=== PATIENT | female | born 1990 | race Caucasian/White ===

== ENCOUNTER 2020-01-28 12:09 | Inpatient (IN) ==
[2020-01-28] MEDS ORDERED: ONDANSETRON 4 MG TAB.RAPDIS PO PRN (12:13)
[2020-01-28] MEDS ORDERED: DEXTROSE 5%-LACTATED RINGERS 1,000 ML IV PRN (12:13)
[2020-01-28] MEDS ORDERED: MISOPROSTOL 100 MCG TABLET VG PRN (12:13)
[2020-01-28] MEDS ORDERED: RINGER'S SOLUTION,LACTATED 1,000 ML IV ONE (12:13)
[2020-01-28] MEDS ORDERED: OXYTOCIN/DEXTROSE 5%-WATER 30 UNITS/500 ML BAG IV ONE (12:13)
[2020-01-28 12:57] LABS: Hematocrit 32.1 % (37.0-47.0); Hemoglobin 10.2 gm/dL (12.5-16.0); Mean Cell Volume 88.2 fl (78-100); Mean Corpuscular Hgb Conc 31.8 g/dl (32-36); Mean Platelet Volume 10.8 fl (8-12.5); Neutrophil # 5.4 K/mm3 (1.3-6.0); Neutrophil % 67.1 % (42-75.0); Platelet Count 257 K/mm3 (150-450); Red Blood Count 3.64 M/mm3 (4.2-5.4); Red Cell Distribution Width 13.2 % (11.5-14.0)
[2020-01-28 13:15] LABS: Albumin * 2.7 gm/dl (3.4-5.0); BUN/Creatinine Ratio 14.6 (9.0-21.6); Bilirubin, Total 0.3 mg/dL (0.0-1.1); Ca. Corrected For Albumin 9.7 mg/dL (8.4-10.2); Total Protein 6.8 gm/dL (6.2-8.2)
--- NOTE | 2020-01-28 14:07 | HP ---
Chief Complaint - Chief Complaint Date of Service: 01/28/20 Time of Service: 13:55 Chief Complaint: labor History of Present Illness: 29 yo at 38w4d admitted for induction of labor due to IHCP, however, was noted to be in early labor upon admission. This complicated by anemia, celiac disease, IHCP. and h/o PP depression Rh positive Rubella immune GBS negative Medical History (Last Reviewed 01/28/20 @ 13:58 by Kingston Berman DO) Umbilical hernia (Resolved) Onset Date: Unknown from Pectus excavatum (Chronic) Onset Date: ~1991 Celiac disease (Inactive) Onset Date: ~04/2016 [facility] - Anemia Onset Date: 04/14/17 with pregnancies Body piercing Onset Date: Unknown Wears glasses Onset Date: Unknown depression Onset Date: Unknown Onset Date: Unknown Spontaneous Onset Date: ~2016 Surgical History: Surgical History (Last Reviewed 01/28/20 @ 13:58 by Kingston Berman DO) History of umbilical hernia repair Onset Date: 10/20/18 [facility] S/P tonsillectomy and adenoidectomy Onset Date: ~1994 Family History: Family History (Last Reviewed 01/28/20 @ 13:58 by Kingston Berman DO) Mother Alive and well Father Hypertension Brother Kidney disease born with 1 kidney Grandfather No problems noted. 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, ore miner current occupational exposures/hazards: No Highest education level completed: Bachelor's degree Sexually Active: Yes Service: No Tobacco: Smoking Status: Never smoker Alcohol: alcohol intake: current alcohol intake frequency: holiday/special occasion details: none with Substance Use: substance use type: does not use Dietary Habits: caffeine: Yes caffeine comment: 2/week Type: carbonated beverages Exercise: Physical activity type: walking frequency: other Moderate/strenuous exercise - min/day: active but no formal exercise Fifi/[employer]: agree to transfusion: Yes Personal Safety: victim of physical abuse: No victim of emotional abuse: No victim of sexual abuse: No Review Of Systems (GEN) - Review of Systems Generalized/Overall Review: Present: No Symptoms Reported EENTM: Present: No Symptoms Reported Respiratory: Present: No Symptoms Reported Cardiac: Present: No Symptoms Reported Abdominal: Present: Abdominal Pain - contractions Genitourinary: Present: No Symptoms Reported Musculoskeletal: Present: No Symptoms Reported Neurological: Present: No Symptoms Reported Skin: Present: Other - Increasing pruritis on palms of hands and soles of feet for past 3 days, worse at night Endocrine: Present: No Symptoms Reported Immunizations: IMMUNIZATION HX Immunizations Up to Date Yes History of Influenza Vaccine Yes Hx Pneumococcal Vaccination No Allergies/Adverse Reactions: Allergies Allergy/AdvReac Type Severity Reaction Status Date / Time No Known Allergies Allergy Verified 01/28/20 11:06 Home Medications: HOME MEDICATIONS docusate sodium 100 mg capsule 100 mg PO DAILY PRN 02/24/18 [Last Taken Unknown] acetaminophen 500 mg tablet 500 mg PO Q6H PRN 03/25/19 [Last Taken 01/27/20 09:00] cetirizine 10 mg capsule 10 mg PO DAILY 07/08/19 [Last Taken Unknown] prenat.vits,osman,zcs-lfzq-gqgnu 1 tab PO DAILY 07/08/19 [Last Taken 01/28/20] calcium carbonate 300 mg (750 mg) chewable tablet 300 mg PO QID PRN 08/26/19 [Last Taken Unknown] breast pump See Rx Instructions .ROUTE .MEDSUPPLY #1 ea 10/13/19 [Last Taken Unknown] Exam - Exam Vital Signs: Vital Signs - Last Taken Temp 37.1 C 01/28/20 13:20 Pulse 95 01/28/20 13:20 Resp 16 01/28/20 13:20 BP 109/63 01/28/20 13:20 Pulse Ox 98 01/28/20 13:20 Constitutional: Present: Alert, Oriented x3, Cooperative, No distress ENT Exam: Present: hearing grossly normal Neck: Present: non-tender Breasts: Present: Exam deferred Respiratory: Present: lungs clear, no respiratory distress Cardiovascular/Chest: Present: regular rate, rhythm, no edema Abdomen: Present: soft, nontender, no rebound tenderness, no hepatospenomegaly, other - Gravid /Rectal: Present: Other - 1/50/-3 Extremity: Present: no pedal edema, no calf tenderness Skin Exam: Present: normal color, warm/dry, no cyanosis Lymphatic: Present: no adenopathy Neurologic: Present: alert, normal mood/affect, oriented x 3 Appearance: Present: appropriate appearance, appropriate insight Eye contact: Present: cooperative, good eye contact Thoughts: Present: normal thought pattern Diagnostic Studies: Abnormal Lab Results 01/28/20 01/28/20 Range/Units 12:50 12:50 RBC 3.64 L (4.2-5.4) M/mm3 Hgb 10.2 L (12.5-16.0) gm/dL Hct 32.1 L (37.0-47.0) % MCHC 31.8 L (32-36) g/dl Immature Gran % (Auto) 0.60 H (0.001-0.429) % Immature Gran # (Auto) 0.05 H (0.000-0.0310) K/mm3 Carbon Dioxide 21.0 L (24-32.6) mmol/L Anion Gap 15.0 H (6.8-13.8) mmol/L Est GFR (Non-Af Amer) 165 H D (60-130) mL/min ALT 17 L (19-67) U/L Alkaline Phosphatase 206 H (50-170) U/L Albumin 2.7 L (3.4-5.0) gm/dl Laboratory Results WBC 8.0 K/mm3 (4.0-10.5) 01/28/20 12:50 RBC 3.64 M/mm3 (4.2-5.4) L 01/28/20 12:50 Hgb 10.2 gm/dL (12.5-16.0) L 01/28/20 12:50 Hct 32.1 % (37.0-47.0) L 01/28/20 12:50 MCV 88.2 fl (78-100) 01/28/20 12:50 MCH 28.0 pg (27-31) 01/28/20 12:50 MCHC 31.8 g/dl (32-36) L 01/28/20 12:50 RDW 13.2 % (11.5-14.0) 01/28/20 12:50 Plt Count 257 K/mm3 (150-450) 01/28/20 12:50 MPV 10.8 fl (8-12.5) 01/28/20 12:50 Immature Gran % (Auto) 0.60 % (0.001-0.429) H 01/28/20 12:50 Immature Gran # (Auto) 0.05 K/mm3 (0.000-0.0310) H 01/28/20 12:50 Neutrophils % 67.1 % (42-75.0) 01/28/20 12:50 Lymphocytes % 24.2 % (20-51) 01/28/20 12:50 Monocytes % 7.3 % (0.0-9) 01/28/20 12:50 Eosinophils % 0.6 % (0.0-3.0) 01/28/20 12:50 Basophils % 0.2 % (0.0-1.0) 01/28/20 12:50 Nucleated RBC % 0.0 k/mm3 (0-1) 01/28/20 12:50 Neutrophils # 5.4 K/mm3 (1.3-6.0) 01/28/20 12:50 Lymphocytes # 1.94 k/mm3 (1.5-3.5) 01/28/20 12:50 Monocytes # 0.6 k/mm3 (0.0-1.0) 01/28/20 12:50 Eosinophils # 0.1 k/mm3 (0.0-0.7) 01/28/20 12:50 Absolute Basophils 0.0 k/mm3 (0.0-0.1) 01/28/20 12:50 Sodium 136 mmol/L (132-142) 01/28/20 12:50 Plasma Sodium 136 mmol/L (130-142) 01/28/20 12:50 Potassium 4.0 mmol/L (3.4-4.6) 01/28/20 12:50 Chloride 104 mmol/L (97-106) 01/28/20 12:50 Carbon Dioxide 21.0 mmol/L (24-32.6) L 01/28/20 12:50 Anion Gap 15.0 mmol/L (6.8-13.8) H 01/28/20 12:50 BUN 7 mg/dL (3-23) 01/28/20 12:50 Creatinine 0.48 mg/dL (0.4-1.4) 01/28/20 12:50 Est GFR (Non-Af Amer) 165 mL/min (60-130) H D 01/28/20 12:50 BUN/Creatinine Ratio 14.6 (9.0-21.6) 01/28/20 12:50 Random Glucose 72 mg/dL (70-110) 01/28/20 12:50 Calcium 9.0 mg/dL (7.9-10.9) 01/28/20 12:50 Calcium Adj for Albumin 9.7 mg/dL (8.4-10.2) 01/28/20 12:50 Total Bilirubin 0.3 mg/dL (0.0-1.1) 01/28/20 12:50 AST 17 U/L (0-48) 01/28/20 12:50 ALT 17 U/L (19-67) L 01/28/20 12:50 Alkaline Phosphatase 206 U/L (50-170) H 01/28/20 12:50 Total Protein 6.8 gm/dL (6.2-8.2) 01/28/20 12:50 Albumin 2.7 gm/dl (3.4-5.0) L 01/28/20 12:50 Assessment/Plan - Assessment/Plan (1) First stage of labor established Assessment: Admit for augmentation of labor due to IHCP. Epidural and pitocin PRN. Problem: Acute (2) Intrahepatic cholestasis of in third trimester Problem: Acute (3) Anemia Problem: Chronic Qualifiers: Anemia type: iron deficiency Iron deficiency anemia type: inadequate dietary iron intake Qualified Code(s): D50.8 - Other iron deficiency anemias (4) Celiac disease Problem: Inactive
[2020-01-28] MEDS ORDERED: BUPIVACAINE HCL/0.9 % NACL/PF 250 ML EP PRN (18:51)
[2020-01-28] MEDS ORDERED: NALOXONE HCL 1 MG/1 ML SYRG IV PRN (18:51)
[2020-01-28] MEDS ORDERED: ONDANSETRON HCL/PF 2 MG/ML VIAL IV PRN (18:51)
--- NOTE | 2020-01-28 18:59 | ANES ---
Anesthesia Pre Procedure Eval Vitals/Labs: Last Vital Signs Temp 37.1 C 01/28/20 13:20 Pulse 95 01/28/20 13:20 Resp 16 01/28/20 13:20 BP 109/63 01/28/20 13:20 Pulse Ox 98 01/28/20 13:20 HOME MEDICATIONS docusate sodium 100 mg capsule 100 mg PO DAILY PRN 02/24/18 [Last Taken Unknown] acetaminophen 500 mg tablet 500 mg PO Q6H PRN 03/25/19 [Last Taken 01/27/20 09:00] cetirizine 10 mg capsule 10 mg PO DAILY 07/08/19 [Last Taken Unknown] prenat.vits,osman,gum-avyu-ufotm 1 tab PO DAILY 07/08/19 [Last Taken 01/28/20] calcium carbonate 300 mg (750 mg) chewable tablet 300 mg PO QID PRN 08/26/19 [Last Taken Unknown] breast pump See Rx Instructions .ROUTE .MEDSUPPLY #1 ea 10/13/19 [Last Taken U nknown] Allergies/Adverse Reactions: Allergies Allergy/AdvReac Type Severity Reaction Status Date / Time No Known Allergies Allergy Verified 01/28/20 11:06 - Planned Procedure Planned Procedure: labor epidural Medication List Reviewed:: Yes Allergies Verified: Yes Medical History (Last Reviewed 01/28/20 @ 18:59 by Mike Mancini CRNA) Pectus excavatum (Chronic) Onset Date: ~1991 Celiac disease (Inactive) Onset Date: ~04/2016 [facility] - Anemia Onset Date: 04/14/17 with pregnancies Body piercing Onset Date: Unknown Wears glasses Onset Date: Unknown depression Onset Date: Unknown Onset Date: Unknown Spontaneous Onset Date: ~2016 Surgical History (Last Reviewed 01/28/20 @ 18:59 by Mike Mancini CRNA) History of umbilical hernia repair Onset Date: 10/20/18 [place] S/P tonsillectomy and adenoidectomy Onset Date: ~1994 Family History (Last Reviewed 01/28/20 @ 18:59 by Mike Mancini CRNA) Mother Alive and well Father Hypertension Brother Kidney disease born with 1 kidney Grandfather No problems noted. Family/Other Diabetes paternal great grandmother - Cardiovascular Tolerate Activity: Good - Anesthesia Assessment and Plan ASA Class: PS, II Anesthesia Type Plan: Epidural
[2020-01-28] MEDS ORDERED: BUPIVACAINE HCL/PF 30 ML VIAL EP SCH (19:00)
--- NOTE | 2020-01-28 19:19 | ANES ---
Anesthesia Procedure Note Procedure Note: ANESTHESIA PROCEDURE NOTE Date of Procedure: 01/28/2020 Time of procedure: 1854. Performed by: Mike Mancini CRNA Sandblaster Supervisor: None. Preprocedure diagnosis: Active labor. Post procedure diagnosis: Same. Procedure: Insertion of labor epidural. Indications: The patient is a 29-year-old female in active labor requesting labor epidural for pain management. Findings: See below. Details of the procedure: The patient was placed in a sitting position. DuraPrep as well as Betadine swabs X3 was applied to the patient's back. Patient was then draped in a sterile fashion. Lidocaine 1% was infiltrated to the skin and subcutaneous tissues at the level of the L3-4 interspace. The epidural space was identified using a 18-gauge Tuohy needle with [id number] technique. Epidural catheter was inserted to a depth of 9 centimeters at skin. Negative test dose was elicited using 3 mL of 1.5% preservative-free lidocaine plus epinephrine 1 200,000. The epidural catheter was then taped and secured in place. EBL: Minimal. Fluids: N/A. Specimen: N/A. Post procedure condition: The patient tolerated the procedure well. No complications were noted. Thank you for this consultation. Mike Mancini CRNA
--- NOTE | 2020-01-28 19:20 | ANES ---
Post Anesthesia Assessment - Vital Signs Vitals: Last Vital Signs Temp 37.1 C 01/28/20 13:20 Pulse 95 01/28/20 13:20 Resp 16 01/28/20 13:20 BP 109/63 01/28/20 13:20 Pulse Ox 98 01/28/20 13:20 Airway Patency: Normal - Mental Status Level Of Consciousness: Awake - Pain Level Pain Score: 0 - N/V Assessment Nausea/Vomiting Presence: None Dehydration:: No
--- NOTE | 2020-01-29 00:41 | PN ---
Progess Note - Interim Date: 01/29/20 Time: 00:39 Narrative: 01/29/20 00:39 Patient rating the contractions as moderate Vital signs stable. Pitocin at 8 mu/min. FHT: 120 baseline, reassuring contractions q 2-3 min Cervix: 2-3/60/-3 Impression: Intrauterine at 38 4/7 weeks induction of labor for IHCP Plan: We will try birthing ball and position changes to get head more applied to the cervix then AROM.
--- NOTE | 2020-01-29 02:41 | PN ---
Progess Note - Interim Date: 01/29/20 Time: 02:38 Narrative: 01/29/20 02:38 Patient desires epidural Vital signs stable. Pitocin at 9 mu/min. FHT: 120 baseline, reassuring contractions q 3-4 min Cervix: 4-5/60/-2, AROM-clear Impression: Intrauterine at 38-5/7 weeks induction of labor for IHCP Plan: Epidural and continue Pitocin to keep contractions q 2-3 minutes apart
--- NOTE | 2020-01-29 06:18 | OR ---
Operative Report - Dictated Report Narrative: Spontaneous vaginal delivery of vigorously crying viable male at 0600 on 01/29/2020 with Apgars 9 and 10, weighing 3140 g and ALEXIS position. Cord clamping delayed approximately 1 minute Placenta delivered complete, intact, with three vessel cord Estimated blood loss: 100 mL Anesthesia: Epidural Lacerations: None History for MU History for Definition: * The number of deliveries resulting in a live the patient experienced prior to current hospitalization * The previous delivery of live twins or any live multiple gestation is considered one live event. *If primagravida or nulliparous is documented select zero for the number of previous live births. Live Events: Live Events: 2
[2020-01-29] MEDS ORDERED: BENZOCAINE/MENTHOL 81 SPRAY CAN TP PRN (06:20)
[2020-01-29] MEDS ORDERED: SENNOSIDES 8.6 MG TABLET PO PRN (06:20)
[2020-01-29] MEDS ORDERED: OXYTOCIN/DEXTROSE 5%-WATER 30 UNITS/500 ML BAG IV ONE (06:20)
[2020-01-29] MEDS ORDERED: DOCUSATE SODIUM 100 MG CAPSULE PO PRN (06:20)
[2020-01-29] MEDS ORDERED: GLYCERIN/WITCH HAZEL LEAF 40 APPL BOX TP PRN (06:20)
[2020-01-29] MEDS ORDERED: HYDROCORTISONE 30 APPL TUBE TP PRN (06:20)
[2020-01-29] MEDS ORDERED: IBUPROFEN 800 MG TABLET PO PRN (06:20)
[2020-01-29] MEDS ORDERED: BISACODYL 10 MG SUPP.RECT RC PRN (06:20)
[2020-01-29] MEDS ORDERED: NON-FORMULARY 1 DOSE DOSE (Breast Pump 0 UNIT) TP SCH (06:30)
[2020-01-29] MEDS: PRENATAL VITS96/IRON FUM/FOLIC 1 TAB TABLET PO SCH (09:02)
[2020-01-29] MEDS: oxyCODONE HCL/ACETAMINOPHEN 1 TAB TABLET PO PRN ×4 (09:02→21:06)
[2020-01-29] MEDS: DOCUSATE SODIUM 100 MG CAPSULE PO SCH ×2 (09:02→21:03)
[2020-01-29] MEDS: LORATADINE 10 MG TABLET PO SCH (09:13)
[2020-01-29] MEDS ORDERED: RHO(D) IMMUNE GLOBULIN 1,500 UNIT SYRINGE IM ONE (12:45)
[2020-01-29] MEDS: IBUPROFEN 800 MG TABLET PO PRN ×2 (13:45→21:06)
[2020-01-30] MEDS: DOCUSATE SODIUM 100 MG CAPSULE PO SCH ×3 (07:49→20:03)
[2020-01-30] MEDS: PRENATAL VITS96/IRON FUM/FOLIC 1 TAB TABLET PO SCH ×2 (07:49→09:04)
[2020-01-30] MEDS: IBUPROFEN 800 MG TABLET PO PRN ×3 (07:50→21:04)
[2020-01-30] MEDS: oxyCODONE HCL/ACETAMINOPHEN 1 TAB TABLET PO PRN ×3 (07:50→21:04)
[2020-01-30] MEDS: LORATADINE 10 MG TABLET PO SCH (09:03)
--- NOTE | 2020-01-30 11:20 | PN ---
Subjective - Date and Time Seen Date: 01/30/20 Time: 11:20 Objective - Vitals Vitals: Last Vital Signs Temp 36.0 C 01/30/20 07:40 Pulse 71 01/30/20 07:40 Resp 18 01/30/20 07:40 BP 132/59 01/30/20 07:40 Pulse Ox 98 01/30/20 07:40 Patient denies complaints. Breast-feeding. Lochia wnl abdomen - soft, nontender Uterus -firm, at umbilicus - 1 no calf tenderness Impression: day #1 - s/p spontaneous vaginal delivery. Plan: Continue routine care Cauti Physician Documentation - Urinary Catheter Management Urethral (Sharp) Date of Insertion: 01/29/20 Time of Insertion: 03:30 Date of Removal: 01/29/20 Time of Removal: 05:55 Assessment/Plan - Problems/Diagnosis (1) First stage of labor established Problem: Acute (2) Intrahepatic cholestasis of in third trimester Problem: Acute (3) Anemia Problem: Chronic Qualifiers: Anemia type: iron deficiency Iron deficiency anemia type: inadequate dietary iron intake Qualified Code(s): D50.8 - Other iron deficiency anemias (4) Celiac disease Problem: Inactive
[2020-01-31] MEDS: IBUPROFEN 800 MG TABLET PO PRN (03:07)
[2020-01-31] MEDS: oxyCODONE HCL/ACETAMINOPHEN 1 TAB TABLET PO PRN (03:07)
[2020-01-31 08:52] VITALS: BP 133/61
--- NOTE | 2020-01-31 09:18 | PN ---
Objective - Vitals Vitals: Last Vital Signs Temp 36.5 C 01/31/20 08:20 Pulse 94 01/31/20 08:20 Resp 18 01/31/20 08:20 BP 133/61 01/31/20 08:20 Pulse Ox 99 01/31/20 08:20 Patient denies complaints. Breast-feeding well Lochia wnl abdomen - soft, nontender Uterus -firm, at umbilicus - 2 no calf tenderness Impression: day #2 - s/p spontaneous vaginal delivery. IHCP- resolved. Plan: Routine discharge instructions Cauti Physician Documentation - Urinary Catheter Management Urethral (Sharp) Date of Insertion: 01/29/20 Time of Insertion: 03:30 Date of Removal: 01/29/20 Time of Removal: 05:55 Assessment/Plan - Problems/Diagnosis (1) First stage of labor established Problem: Resolved (2) Intrahepatic cholestasis of in third trimester Problem: Resolved (3) Anemia Problem: Chronic Qualifiers: Anemia type: iron deficiency Iron deficiency anemia type: inadequate dietary iron intake Qualified Code(s): D50.8 - Other iron deficiency anemias (4) Celiac disease Problem: Inactive
[2020-01-31] MEDS: LORATADINE 10 MG TABLET PO SCH (11:18)
[2020-01-31] MEDS: DOCUSATE SODIUM 100 MG CAPSULE PO SCH (11:18)
[2020-01-31] MEDS: PRENATAL VITS96/IRON FUM/FOLIC 1 TAB TABLET PO SCH (11:19)
== END 2020-01-31 10:15 | disposition home or self-care (01) | DRG 805 ==
LOC: OB 12:09
PROVIDERS: ADMIT Obstetrics & Gynecology; ATTEND Obstetrics & Gynecology
CPT/HCPCS: 36415; 59025; 80053; 85025; 85460; J2790